=== PATIENT | female | born 1960 | race Caucasian/White ===

== ENCOUNTER 2017-12-30 12:33 | Inpatient (IN) | payer OTHER ==
[~2017-12-30] VITALS: Ht 162.6 cm; Wt 78.9 kg
[2017-12-30] VITALS (16 sets, daily range): BP systolic 129–192; BP diastolic 62–101
--- NOTE | ~2017-12-30 | 2DMMODE ---
[facility] [address] [place] [address] 2 D/M-MODE ECHOCARDIOGRAM Name: OLEKSANDR LANDRY Room #: 246-P ADM IN .R.#: [id number] Admission: 12/30/17 Attend Phys: Juan Carlos Figueroa MD Discharge: Date of : 60 Date of Service: 12/31/17 1457 Report #: [id number] THIS REPORT FOR: //name// APPROVED REPORT Study performed: 12/31/2017 13:18:13 EXAM: Comprehensive 2D, Doppler, and color-flow Echocardiogram Patient Location: ICU Room #: 246 Status: routine BSA: 1.85 HR: 75 bpm BP: 126/74 mmHg Other Information Study Quality: Adequate Indications Stroke Echo Enhancing Agent Indication: Rule out Shunt Agent(s) / Amount(s) Used: Agitated Saline 6 cc 2D Dimensions RVDd: 31.84 mm LVEF(%): 73.64 (>50%) IVSd: 8.58 (7-11mm) LVOT Diam: 21.51 (18-24mm) LVDd: 39.34 mm PWd: 10.34 (7-11mm) Ascending Ao: 27.75 (22-36mm) LVDs: 22.81 (25-40mm) Aortic Root: 33.35 mm IVC: 12.00 mm Nieto's LVEF: 73.64 % Volumes Left Atrial Volume (Systole) Single Plane 4CH: 37.44 mL Single Plane 2CH: 41.50 mL LA ESV Index: 25.00 mL/m2 Aortic Valve AoV Peak Low.: 1.19 m/s AO Peak Gr.: 5.68 mmHg LVOT Max P.77 mmHg LVOT Max V: 0.97 m/s CAPRI Vmax: 2.[address] [facility] [place] [address] 2 D/M-MODE ECHOCARDIOGRAM Name: OLEKSANDR LANDRY Room #: [facility] IN M.R.#: [id number] Admission: 12/30/17 Attend Phys: Juan Carlos Figueroa MD Discharge: Date of : 60 Date of Service: 12/31/17 1457 Report #: [id number] Mitral Valve E/A Ratio: 1.4 MV Decel. Time: 198.65 ms MV E Max Low.: 0.78 m/s MV A Low.: 0.57 m/s MV PHT: 57.61 ms IVRT: 103.81 ms Pulmonary Valve PV Peak Low.: 0.90 m/s PV Peak Gr.: 3.22 mmHg Pulmonary Vein P Vein S: 0.54 m/s P Vein A: 0.22 m/s P Vein D: 0.36 m/s P Vein A Dur.: 83.0 msec P Vein S/D Ratio: 1.50 Tricuspid Valve TR Peak Low.: 2.57 m/s RAP Estimate: 5.00 mmHg TR Peak Gr.: 26.33 mmHg PA Pressure: 31.00 mmHg Left Ventricle The left ventricle is normal size. There is normal left ventricular wall thickness. The left ventricular systolic function is normal. The left ventricular ejection fraction is within the normal range. LVEF is 55-60%. Moderate diastolic dysfunction is present (pseudonormal filling). Right Ventricle The right ventricle is normal size. The right ventricular systolic function is normal. Atria The left atrium size is normal. No shunting by contrast bubble injection. The right atrium size is normal. Aortic Valve The aortic valve is normal in structure. No aortic regurgitation is present. There is no aortic valvular stenosis. Mitral Valve The mitral valve is normal in structure. Trace mitral regurgitation. No evidence of mitral valve stenosis. Tricuspid Valve The tricuspid valve is normal in structure. Trace tricuspid [facility] [address] [place] [address] 2 D/M-MODE ECHOCARDIOGRAM Name: OLEKSANDR LANDRY Room #: 246-P [facility] IN [facility]#: [id number] Admission: 12/30/17 Attend Phys: Juan Carlos Figueroa MD Discharge: Date of : 60 Date of Service: 12/31/17 1457 Report #: [id number] regurgitation. PAP is estimated at 31 mmHg. Pulmonic Valve Pulmonic valve is not well visualized. Great Vessels The aortic root is normal in size. IVC is normal in size and collapses >50% with inspiration. Pericardium There is no pericardial effusion. <Conclusion> The left ventricle is normal size. There is normal left ventricular wall thickness. The left ventricular systolic function is normal. Moderate diastolic dysfunction is present (pseudonormal filling). The right ventricle is normal size. The left atrium size is normal. There is no aortic valvular stenosis. Trace mitral regurgitation. Trace tricuspid regurgitation. PAP is estimated at 31 mmHg. <ELECTRONICALLY SIGNED> By: Alf Pisano MD 12/31/17 1457 1457 145 Alf Pisano MD /INF
--- NOTE | ~2017-12-30 | HC ---
[facility] [place] [address] CONSULTATION Name: OLEKSANDR LANDRY Room #: 426-P [facility] IN M.R.#: [id number] Admission: 12/30/17 Attend Phys: Juan Carlos Figueroa MD Discharge: Date of : 60 Report #: [id number] THIS REPORT FOR: //name// CC: Juan Carlos Gross DATE OF SERVICE: 01/01/2018 HISTORY OF PRESENT ILLNESS: The patient is a 57-year-old white female admitted with left-sided weakness. CT of the head was negative. She was diagnosed with a right parietal stroke, given tPA with subsequent right parietal hemorrhage. This was noted to be a small bleed. She did have a seizure post-stroke. She has been closely monitored in the ICU and appears to be doing very well. We are seeing her in Rehabilitation Medicine consultation. She still supposed to be transferred out of the ICU later on today. She denies any focal weakness of upper or lower extremity or any focal visual problems. No swallowing issues. PAST MEDICAL HISTORY: Celiac disease, asthma, hyperlipidemia. MEDICATIONS: Please see the full medication listing. This includes vitamins, herbals, and supplements. ALLERGIES: WHEAT AND MILK CONTAINING PRODUCTS. SOCIAL HISTORY: Lives in a split-level house. There is an involved male significant other. 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 No steps into the house. There is a half a flight of steps inside the house. REVIEW OF SYSTEMS: Did not offer any current complaints of chest pain, shortness of breath or abdominal discomfort. PHYSICAL EXAMINATION: GENERAL: A 57-year-old white female, in no obvious distress. She is alert, pleasant, oriented. VITAL SIGNS: Last recorded temperature 98.3, pulse 81, respirations 16, blood pressure 125/72. HEENT: Appeared to be benign. NEUROLOGIC: EOMs appeared full. Functional range of motion of both upper extremities and lower extremities without obvious focal weakness. Tone appeared to be intact. She has been up ambulating with physical therapy, standby assistance. Ambulating 300 feet without a gait aid. ASSESSMENT: A 57-year-old white female with the following problem list: 1. Right parietal stroke with initial left-sided weakness, status post tPA with small right parietal hemorrhage. 2. Seizure post-stroke, on Keppra. [address] [address] CONSULTATION Name: OLEKSANDR LANDRY Room #: 426-P [facility] IN M.R.#: [id number] Admission: 12/30/17 Attend Phys: Juan Carlos Figueroa MD Discharge: Date of : 60 Report #: [id number] 3. Leukocytosis, reactive, improved. PLAN: She is doing very well. I did not detect any obvious focal weakness and tone appeared to be intact. She is doing well with functional mobility. Physical therapy will be working with her on stairs. I would anticipate she should be able to return directly home and may need some further therapies as an outpatient. I do not see that she would meet criteria or need an acute in-hospital inpatient rehabilitation stay. Thank you for asking us to assist in this patient's care. By: 1408 [id number] Yusuf Fiore MD /PMT
--- NOTE | ~2017-12-30 | HC ---
[facility] [place] [address] CONSULTATION Name: OLEKSANDR LANDRY Room #: 426-P [facility] IN M.R.#: [id number] Admission: 12/30/17 Attend Phys: Juan Carlos Figueroa MD Discharge: 01/02/18 Date of : 60 Report #: [id number] THIS REPORT FOR: //name// CC: Juan Carlos Gross DATE OF SERVICE: 12/31/2017 REASON FOR CONSULTATION: Intracerebral hemorrhage. HISTORY OF PRESENT ILLNESS: On 12/30/2017, the patient reports that she was at the [facility] with her significant other and planning to leave. She said that while she was doing nothing strenuous and while walking, developed a sense of numbness over her entire left body, face, arm, left trunk and leg. She said at that point, she did not notice any weakness. She said that she and her boyfriend returned back to [place], but then she had another episode in which she developed weakness along with the numbness. She was brought to the Emergency Room for further evaluation. While there, there is a history of seizure activity associated with this. She was studied. She was felt to be developing a stroke and was started on TPA. She subsequently had further seizure and on a CT scan of the head, there was a focal left posterior parietal hemorrhage. Keppra was given. She has been observed in the intensive care unit. Tonight, she reports no difficulty. She says the numbness, feelings of weakness in her left side have resolved. She does not notice any headache pain. No visual problems. No neck stiffness. She feels as though mentation is clear. PAST MEDICAL HISTORY: Includes a history of celiac disease. She reports that she has had problems with hypertension. There is no history of migraine. She did report problems with depression in the past. PERSONAL HISTORY: She reports that she does not smoke and drinks alcohol rarely. She works for [employer]. REVIEW OF SYSTEMS: Twelve points was performed and other than outlined above is negative. PHYSICAL EXAMINATION: GENERAL: She is pleasant, alert and cooperative, oriented x 3 with normal recent and remote memory, normal speech. I felt she was an excellent historian. NEUROLOGIC: Her pupils were equal and reactive with normal extraocular motor function. Facial motor, facial sensory examination was normal. Her lower cranial nerves were intact. On motor testing, her strength was 5/5 in upper and lower extremities bilaterally. On sensory examination, she was intact to light touch in the upper and lower extremities bilaterally. Reflexes were 1+ and symmetric. There were no pathologic reflexes. [address] [address] CONSULTATION Name: OLEKSANDR LANDRY Room #: 426-P DIS IN M.R.#: [id number] Admission: 12/30/17 Attend Phys: Juan Carlos Figueroa MD Discharge: 01/02/18 Date of : 60 Report #: [id number] HEENT: Normocephalic and atraumatic. NECK: Supple. No rigidity. EXTREMITIES: She moved upper and lower extremities with full range of motion equally. I reviewed CT scan of the head and on that study, there is a small focal hemorrhage in the right posterior parietal region without significant surrounding edema. On a followup CT scan, there was no significant change. IMPRESSION: Intracerebral hemorrhage. At this point, I feel she is stable. From my standpoint, there has been no evidence of any further hemorrhaging. I would recommend obtaining a followup CT scan in 7-10 days to follow this abnormal area until it resolves completely. I did discuss this with the patient, and I also explained to her that she will need to limit her activities and not to drive, etc. until this problem has resolved. Her workup for the underlying etiology is underway. I appreciate you asking us to see her. <ELECTRONICALLY SIGNED> By: Aidan Trujillo MD 01/04/18 1113 0937 0047 Aidan Trujillo MD /nt
--- NOTE | ~2017-12-30 | EEG ---
[facility] [place] [address] ELECTROENCEPHALOGRAM Name: OLEKSANDR LANDRY Room #: 246-P [facility] IN M.R.#: [id number] Admission: 12/30/17 Attend Phys: Juan Carlos Figueroa MD Discharge: Date of : 60 Report #: [id number] THIS REPORT FOR: //name// CC: Juan Carlos Gross DATE OF SERVICE: 12/30/2017 INDICATION FOR STUDY: This patient is being evaluated for seizure. DESCRIPTION OF PROCEDURE: EEG was done by placing the electrode by standard 10-20 system of electrode placement. Both referential and sequential montages were used for recording. Background activity in this patient's EEG is about 9-10 Hz and 40 microvolt. EEG activity is symmetrical. Photic stimulation was unremarkable. The patient went to sleep and that is associated with bilaterally symmetrical sleep spindle and vertex sharp waves. Throughout the record, no active epileptiform activity was noticed. IMPRESSION: This patient's electroencephalogram is unremarkable. No active epileptiform activity was noticed during this record. Thank you very much for this referral. By: [id number] Jignesh Wilson MD /nt
--- NOTE | ~2017-12-30 | EKG ---
[address] [address] ELECTROCARDIOGRAM REPORT Name: OLEKSANDR LANDRY Room #: 246-P ADM IN M.R.#: [id number] Admission: 12/30/17 Attend Phys: Juan Carlos Figueroa MD Discharge: Date of : 60 Report #: [id number] THIS REPORT FOR: //name// [facility] Test Date: 2017-12-30 Test Time: 16:02:00 Pat Name: OLEKSANDR LANDRY Department: Room: 246 P Gender: F Casino Host: ANGELLA : 1960 Requested By: Juan Carlos Figueroa Order Number: [id number] MD: Riky Talavera Measurements Intervals [place] Rate: 102 P: 71 MD: 158 QRS: -23 QRSD: 99 T: 34 QT: 353 QTc: 460 Interpretive Statements Sinus tachycardia Borderline left axis deviation Abnormal R-wave progression, late transition Abnormal inferior Q waves Baseline wander in lead(s) I,III,aVL,aVF,V6 No previous ECG available for comparison Electronically Signed On 12-31-2017 8:30:51 CDT by Riky Talavera [email or web address] <ELECTRONICALLY SIGNED> By: Riky Talavera MD, FACC 12/31/17 0830 1602 1602 Riky Talavera MD, [facility] /EPI
--- NOTE | ~2017-12-30 | HC ---
[facility] [place] [address] CONSULTATION Name: OLEKSANDR LANDRY Room #: 246-P [facility] IN M.R.#: [id number] Admission: 12/30/17 Attend Phys: Juan Carlos Figueroa MD Discharge: Date of : 60 Report #: [id number] THIS REPORT FOR: //name// CC: Juan Carlos Gross DATE OF SERVICE: 12/30/2017 HISTORY OF PRESENT ILLNESS: This is a 57-year-old female patient who was evaluated by me for a stroke protocol. I initially got a call from Denise Rojo from Emergency Room. She was the one who was seeing the patient in the Emergency Room and as I understood from her, she had an episode, which was described by boyfriend to her. Her symptoms were that she had numbness on the left side of the body and that was followed by weakness on the left side of the body. There was no associated other symptoms and the symptom resolved after 15 minutes. Then, she had another episode, which was more severe than the first one. The patient initially had numbness on the left side and that was followed by profound weakness on the left side and then, there was a question that she may have had some speech difficulty at that time, but it was mostly altered mental status. There was a question of seizure following that, but that is not certain. She has no history of stroke or seizures in the past. I discussed the patient with them on the phone and this patient apparently was still weak on the left side and she was still having sensory symptom of the left side and they have done a CT scan of the head and CT scan of the head has not shown any bleed. They have looked at the exclusion criteria for TPA and they have not found any exclusion criteria and their plan was to give TPA. With this new onset of weakness and numbness on the left side that looked reasonable plan till the family understood the indication, potential complication and alternative to the TPA at that time. They indicated they had explained it to them and they were planning to TPA. I came to the Emergency Room to see the patient and talked to the family. The patient was receiving TPA at that time. The history I took from the son as well as the patient's boyfriend. A boyfriend provided history that this patient had a profound episode of left-sided numbness and weakness without any seizure activities, which lasted about 15 minutes. Then, she had another very profound episode of pronounce paralysis and weakness on the left side with a question of seizure at that time. She has no prior history of stroke or seizures. REVIEW OF SYSTEMS: Carried out. She indicated she had celiac disease. I talked about any smoking, drinking alcohol and using any drugs. The family denied that she has any of those. [facility] [address] [place] [address] CONSULTATION Name: OLEKSANDR LANDRY Room #: 246-P [facility] IN M.R.#: [id number] Admission: 12/30/17 Attend Phys: Juan Carlos Figueroa MD Discharge: Date of : 60 Report #: [id number] However, I talked to the boyfriend, again just a few minutes back. Now, he mentioned that on Thursday, she took at least 3 alcoholic drinks, which is unusual for her. He still states that she otherwise drinks alcohol very rarely. This information we did not have and this is new. When I talked to the son a few minutes ago and he indicated that this patient may have had more than 2 and maybe up to 4 TIA-like symptoms, but all the episodes occurred today. I carried out the 14-point review of systems as much as I could, but that time was shot in the Emergency Room and lot of history is different than what I got earlier as summarized above. PAST MEDICAL HISTORY: Negative for any seizures or migraine headache. The family is certain that she does not suffer from chronic migraine. I did talk to her any history of depression and she indicated that she does not have any depression now but she used to some time ago when she was . FAMILY HISTORY: Her mother had developed seizures after she fell from a horse and had head injury. SOCIAL HISTORY: The initial social history was that she does not smoke, drink alcohol except one drink occasionally and does not use drugs. Subsequently, I did get the history that on vacation, she did drink alcohol but still it was only 3 alcoholic drinks according to the boyfriend. PHYSICAL EXAMINATION: Examination was carried out multiple times. Last examination indicated that she is alert and she is responsive. She has a speech. She is still somewhat confused. Cranial nerve examination 2 through 12 is difficult, but I do not see any pronounced abnormality. She moves both sides. This examination is similar to the one where I had carried out in the Emergency Room. Her blood pressure was pretty high when she came in and the blood pressure was 192/101 and it was thought it was reactive hypertension. That blood pressure was lowered by Emergency Room physician and the last blood pressure she had was 149/77. It looks like that when she came in, her white count was normal at 10.8, but subsequently it looks like her white count has gone up, but she also had a seizure. RADIOLOGICAL DATA: I reviewed the CT angiogram with the radiologist and reviewed the CT scan films on this patient. IMPRESSION AND RECOMMENDATIONS: There is some confusion about the medication, but I think she got 1000 mg of Keppra in the Emergency Room but since she still had a seizure, we might give her some more Keppra. This patient was seen multiple times. The plan was to get a CT angiogram and perfusion in this patient but looks like when she went to Intensive Care Unit, the nurses called me that she had another seizure. Seizure has a distinct focality towards the left side. The episode she had previously were also on the [facility] [address] [place] [address] CONSULTATION Name: OLEKSANDR LANDRY Room #: 246-P ADM IN M.R.#: [id number] Admission: 12/30/17 Attend Phys: Juan Carlos Figueroa MD Discharge: Date of : 60 Report #: [id number] left side. Because of that, a stat CT scan of the head was done, which demonstrated a small bleed in the right parietal area. CT angiogram was done and that was reviewed with the radiologist and he states there is no evidence of aneurysms or any blockage or any intracranial sinus thrombosis. I talked to hospitalist, Dr. Figueroa and the nurse practitioner and told them to consult Hematology to see what can be done to reverse the tissue plasminogen activator. I myself call the neurosurgeon and asked them to review the films and they agree with conservative treatment at the moment and asked for another CAT scan or an MRI tomorrow. I was going to do an MRI tonight, but I did not do it because it is unlikely to change anything and if the patient has a seizure in the MRI that will be catastrophic. I will continue Keppra in this patient. It is a pretty small bleed, but we need to make sure it does not become better. I have discussed with the family very clearly all the things from the beginning. During my initial visit with them in the Emergency Room, I have discussed with them that the treatment of the stroke is done with a presumptive diagnosis at that time because there is no time to confirm the diagnosis, especially in her case where she was close to passing the window. I had very clearly talked to them their options, indications, potential complications, including bleed from tissue plasminogen activator and alternative in that regard and as mentioned above that we gave tissue plasminogen activator on the suspicion of stroke because we do not have time to confirm that or it delays the treatment. The downside to that is that sometime we land of giving tissue plasminogen activator to the non-stroke patient. They understood that very well. They wanted to proceed with tissue plasminogen activator and we did and presently, she did have a small bleed but the bleed is small and if it does not become bigger, it should get absorbed. She needs to be on anticonvulsant and we would like to do an MRI to see if it is a hemorrhagic stroke or if there is a bleed, although that may be difficult to confirm. More than 70 minutes of time was spent taking care of this patient today and majority of that time was spent counseling the family on multiple occasions and coordinating her care by talking to multiple other health care transport nurse. <ELECTRONICALLY SIGNED> By: Jignesh Wilson MD 01/01/18 2259 [id number] Jignesh Wilson MD /nt
--- NOTE | ~2017-12-30 | HC ---
[facility] [address] [address] CONSULTATION Name: OLEKSANDR LANDRY Room #: 246-P ADM IN M.R.#: [id number] Admission: 12/30/17 Attend Phys: Juan Carlos Figueroa MD Discharge: Date of : 60 Report #: [id number] THIS REPORT FOR: //name// CC: Juan Carlos Gross DATE OF SERVICE: 12/30/2017 REASON FOR CONSULT: Intracranial hemorrhage after TPA for possible stroke. HISTORY OF PRESENT ILLNESS: Partly from the chart, partly from translating the patient, partly from her family. The patient is a 57-year-old female from the [facility] who lives in [place] who had been down to the big [place] and apparently had some seizure-like activity while being driven to the emergency room. She began having troubles this morning, onset on 12/30 while at the [employer]. They were cleaning the boat. She felt left-sided weakness and numbness and tingling from her cheek to her toe. She was having difficulty speaking and breathing. They began coming towards town. This subsided and it came and went. Upon arrival here at their house, she had more trouble with similar episode like one before that lasted about [address] to the emergency room, she began having what sounds like seizure activity. They called EMS. Her first CT here did not show any specific abnormalities. I believe she got the TPA about 1400 if I recall correctly. She had both, the bolus and begin infusion. She did begin having some difficulties and her second head CT head reviewed and was found to have a parietal abnormality. Specifically, there been development of a small focal high-attenuation hemorrhage in the right parietal lobe measuring approximately 1.8 cm. They also mentioned there may be a tiny amount of subarachnoid blood within the right posterior frontal lobe sulcus. No other lesions are seen. The patient also had a head and neck that showed the carotid arteries were widely patent bilaterally. Intradural vertebral arteries are patent bilaterally and basilar arteries present normal. The impression was that no specific vascular abnormalities identified in the neck or head. The patient at this time is in the ICU. She has a slight headache that she describes a tension ache, may be a little bit worse than usual, but she does have headaches. No vision troubles, does report a history of cataracts and has been seeing better since they were removed. She does feel like her thinking is a little bit slow, but she says it may be from being in the ICU and being stressed out. She says she thinks she is thinking clearly. The prep is a little bit slow. She does describe some a tingling feeling that comes and goes. She is moving her arms and legs. Denies any stomach trouble, any blood in her urine or stool, any fevers or chills, any unusual chemical exposure or sick animal exposure or drinking well water. She has no unusual trauma. No diarrhea, no constipation. [facility] [address] [place] [address] CONSULTATION Name: OLEKSANDR LANDRY Room #: 246-P [facility] IN M.R.#: [id number] Admission: 12/30/17 Attend Phys: Juan Carlos Figueroa MD Discharge: Date of : 60 Report #: [id number] PAST MEDICAL HISTORY: Notable for history of celiac disease, also hysterectomy with use of estrogen prior to admission, avoid in future. FAMILY HISTORY: Sounds like no clots or bleeding or cancer difficulties. Sounds like she has two sisters and I think one son. There is a dog at home. She works for [employer], nonsmoker, alcohol occasionally. CURRENT MEDICATIONS: Include famotidine 20 b.i.d. IV labetalol 10 mg q. 4h IV p.r.n., Tylenol p.r.n. Lorazepam had been given. Electrolyte replacements. I believe she received IV thiamin, also received IV levetiracetam. LABORATORY DATA: Lab here shows BUN of 16, creatinine of 1.1. Transaminases normal. Coags on baseline where an INR of 1, protime of 10.3, APTT 23.6, fibrinogen at 1525 was 220. This was after the TPA, but before any blood products or cryo FFP was given. The patient had a drug screen that was normal. White blood count on admission was 10.8, most recently 15.6, hemoglobin on admission was 13, currently 11.5, MCV 85.9, platelets 348 on admission, 313 most recently. Differential has slight increase seg, neutrophils. TSH 3.299. UA has trace blood. Blood gas had a pH of 7.133, CO2 of 41, O2 of 37.3 on oxygen. Lactate was 11.14 this afternoon, but hemoglobin was normal range. PHYSICAL EXAMINATION: GENERAL: The patient appears her stated age. VITAL SIGNS: Height is 5 feet 4 inches, which is 162.6 cm, weight 175 pounds or 79.4 kilograms. Blood pressure is 149/77, O2 sat 98%, pulse 91, temperature 98.5. MOOD: She is alert and pleasant and conversant. NEUROLOGIC: Face is symmetrical. She is moving extremities, though she does describe the slightly unusual sensation on her arms like a tingling feeling. HEENT: Oropharynx without injection, leukoplakia or petechiae. LUNGS: Clear with symmetric expansion, unlabored without rhonchi, rales or wheezes. HEART: Appears regular rate. ABDOMEN: Soft, no masses, nontender. EXTREMITIES: Without clubbing, cyanosis or edema. DISCUSSION: Discussed with the patient that I have seen her to try to help thicken her blood after the TPA. We discussed that we have and will be giving her some cryo to help make sure her fibrinogen helps stay up. To help the platelets work better, we will also give her platelet transfusions, but the platelets may be dysfunctional after the TPA. We expect that the TPA can be metabolized quickly as it does have short half like. We will be watching her blood closely every 4 hours for the next about 36 hours. ASSESSMENT AND PLAN: [facility] [address] [place] [address] CONSULTATION Name: OLEKSANDR LANDRY Room #: 246-P ADM IN M.R.#: [id number] Admission: 12/30/17 Attend Phys: Juan Carlos Figueroa MD Discharge: Date of : 60 Report #: [id number] 1. Intracranial hemorrhage after tissue plasminogen activator for possible stroke. The patient appears to be stable. The patient has received pooled cryo, will be receiving platelets. Her fibrinogen after tissue plasminogen activator, before any blood products was 220. We will follow this and try to keep it above 150. We also follow her coags. If they drop, may need to give other blood products. No active bleeding at this point. 2. History of stroke. We will defer to Neurology. We would probably suggest avoiding hormone products in the future, as this possibly might have contributed to her initial cerebrovascular accident symptoms. 3. Seizure activity. Continue anticonvulsants. 4. Lipids. Defer to others. 5. History of celiac disease. Avoid gluten. Defer to her diet. 6. Menopausal. As above, avoid future hormone usage. We will follow with you. <ELECTRONICALLY SIGNED> By: Clay Ambrose MD 12/31/17 0837 [id number] Clay Ambrose MD /nt
[2017-12-30] MEDS ORDERED: ESTRACE0.5 MG PO (13:09)
[2017-12-30] MEDS ORDERED: SINGULAIR 10 MG10 M1 PO (13:09)
[2017-12-30] MEDS ORDERED: SYMBICORT80 MCG/4.1 INH (13:09)
[2017-12-30 13:14] LABS: ABSOLUTE NEUTROPHILS 7.9 thou/uL (1.4-8.2); BASOPHILS 0.3 % (0.0-2.0); EOSINOPHILS 2.4 % (0.0-3.0); HEMATOCRIT 39.2 % (37.0-47.0); LYMPHOCYTES 19.8 % (24.0-44.0); MCH 28.5 pg (26.0-34.0); MCHC 33.2 g/dL (28.0-37.0); MCV 85.9 fL (80.0-100.0); MONOCYTES 4.3 % (1.0-8.0); PLATELET COUNT 348 thou/uL (150-400); POLYS 73.2 % (36.0-66.0); RBC 4.57 mil/uL (4.20-5.00); RDW 14.1 % (10.5-14.5); WBC 10.8 thou/uL (4.0-11.0)
[2017-12-30 13:29] LABS: ANION GAP 9 mmol/L (7-16); BUN 16 mg/dL (7-18); CALCIUM 8.9 mg/dL (8.5-10.1); CHLORIDE 104 mmol/L (98-107); CO2 24 mmol/L (21-32); GLUCOSE 110 mg/dL (74-106); SODIUM 137 mmol/L (136-145)
[2017-12-30 13:38] LABS: ALBUMIN 3.5 g/dL (3.4-5.0); SGOT 14 U/L (15-37); SGPT 22 U/L (30-65); TOTAL BILIRUBIN 0.2 mg/dL (<0.1-1.0); TOTAL PROTEIN 7.7 g/dL (6.4-8.2); TROPONIN-I <0.06 ng/mL (<0.06)
[2017-12-30 14:38] LABS: BE(vivo) -15.1 mmol/L (-2 to +3); HCO3 13.5 mmol/L (22.0-26.0); PCO2 41.1 mmHg (35.0-45.0); PO2 372.6 mmHg (80.0-100.0); pH 7.133 (7.360-7.450); sO2 99.7 % (92.0-98.0)
[2017-12-30 14:46] LABS: HEMATOCRIT 40.6 % (37.0-47.0); MCH 28.3 pg (26.0-34.0); MCHC 32.1 g/dL (28.0-37.0); MCV 88.4 fL (80.0-100.0); RBC 4.6 mil/uL (4.20-5.00); RDW 14.4 % (10.5-14.5); WBC 21.5 thou/uL (4.0-11.0)
[2017-12-30 14:58] LABS: ANION GAP 20 mmol/L (7-16); BUN 16 mg/dL (7-18); CALCIUM 8.8 mg/dL (8.5-10.1); CHLORIDE 105 mmol/L (98-107); CO2 15 mmol/L (21-32); CREATININE 1.1 mg/dL (0.6-1.0); GLUCOSE 143 mg/dL (74-106); POTASSIUM 3.8 mmol/L (3.5-5.1); SODIUM 140 mmol/L (136-145)
[2017-12-30 15:03] LABS: ALBUMIN 3.6 g/dL (3.4-5.0); LIPASE 201 U/L (73-393); PHOSPHORUS 4.4 mg/dL (2.5-4.9); SGOT 15 U/L (15-37); SGPT 22 U/L (30-65); TOTAL BILIRUBIN 0.3 mg/dL (<0.1-1.0); TOTAL PROTEIN 7.5 g/dL (6.4-8.2); TROPONIN-I <0.06 ng/mL (<0.06)
[2017-12-30 15:50] LABS: ABSOLUTE NEUTROPHILS 14.2 thou/uL (1.4-8.2); BASOPHILS 0.1 % (0.0-2.0); EOSINOPHILS 0.3 % (0.0-3.0); HEMATOCRIT 34.2 % (37.0-47.0); HEMOGLOBIN 11.5 gm/dL (12.0-15.0); LYMPHOCYTES 6.5 % (24.0-44.0); MCH 28.8 pg (26.0-34.0); MCHC 33.6 g/dL (28.0-37.0); MCV 85.7 fL (80.0-100.0); MONOCYTES 2.4 % (1.0-8.0); PLATELET COUNT 313 thou/uL (150-400); POLYS 90.7 % (36.0-66.0); RDW 13.9 % (10.5-14.5); WBC 15.6 thou/uL (4.0-11.0)
[2017-12-30 15:59] LABS: APTT 23.6 Seconds (24.5-32.8); FIBRINOGEN 220.1 mg/dL (210-360); PROTIME 10.3 Seconds (9.3-11.4)
[2017-12-30 16:45] LABS: URINE BILIRUBIN NEGATIVE (Negative); URINE BLOOD TRACE (Negative); URINE CLARITY CLEAR; URINE COLOR YELLOW; URINE GLUCOSE-RANDOM* NEGATIVE (Negative); URINE KETONES NEGATIVE (Negative); URINE LEUKOCYTES NEGATIVE (Negative); URINE NITRITE NEGATIVE (Negative); URINE PROTEIN (DIPSTICK) TRACE (Negative); URINE UROBILINOGEN 0.2 E.U./dl (0.2-1.0)
[2017-12-30 16:57] LABS: AMP/METHAMP Negative (Negative); BARBITURATES Negative (Negative); BENZODIAZEPINES Negative (Negative); COCAINE Negative (Negative); METHADONE Negative (Negative); OPIATES Negative (Negative); PCP Negative (Negative)
[2017-12-30] MEDS ORDERED: FISH OIL 1,001000 M2 PO (17:23)
[2017-12-30] MEDS ORDERED: BIOTIN1 M1 PO (17:23)
[2017-12-30 20:53] LABS: HEMOGLOBIN 12.9 gm/dL (12.0-15.0); MCH 28.9 pg (26.0-34.0); MCV 84.7 fL (80.0-100.0); RBC 4.48 mil/uL (4.20-5.00); RDW 13.9 % (10.5-14.5); WBC 16.1 thou/uL (4.0-11.0)
[2017-12-30 21:08] LABS: APTT 24.3 Seconds (24.5-32.8); FIBRINOGEN 274.5 mg/dL (210-360); PROTIME 10.2 Seconds (9.3-11.4)
[2017-12-31] VITALS (22 sets, daily range): BP systolic 118–154; BP diastolic 65–92
[2017-12-31 01:23] LABS: HEMOGLOBIN 12.5 gm/dL (12.0-15.0); MCH 28.7 pg (26.0-34.0); MCHC 33.8 g/dL (28.0-37.0); RBC 4.35 mil/uL (4.20-5.00); RDW 14.1 % (10.5-14.5); WBC 14.5 thou/uL (4.0-11.0)
[2017-12-31 01:34] LABS: ANION GAP 11 mmol/L (7-16); BUN 8 mg/dL (7-18); CALCIUM 8.2 mg/dL (8.5-10.1); CHLORIDE 107 mmol/L (98-107); CHOLESTEROL 206 mg/dL (<200); CO2 24 mmol/L (21-32); CREATININE 0.8 mg/dL (0.6-1.0); GLUCOSE 104 mg/dL (74-106); HDL CHOLESTEROL 50 mg/dL (>40); LDL CHOLESTEROL 115 mg/dL (<100); MAGNESIUM 2.2 mg/dL (1.8-2.4); POTASSIUM 3.5 mmol/L (3.5-5.1); SGOT 18 U/L (15-37); SGPT 20 U/L (30-65); SODIUM 142 mmol/L (136-145); TC:HDL 4.1 Ratio (Not establshd); TOTAL BILIRUBIN 0.7 mg/dL (<0.1-1.0); TOTAL PROTEIN 6.8 g/dL (6.4-8.2); TRIGLYCERIDE 207 mg/dL (<150); VLDL 41 mg/dL (<40)
[2017-12-31 01:35] LABS: SERUM ASSESSMENT Clear
[2017-12-31 01:38] LABS: APTT 24.7 Seconds (24.5-32.8); FIBRINOGEN 309.9 mg/dL (210-360); PROTIME 10.2 Seconds (9.3-11.4)
[2017-12-31 05:51] LABS: HEMATOCRIT 36.7 % (37.0-47.0); HEMOGLOBIN 12.6 gm/dL (12.0-15.0); MCH 29.2 pg (26.0-34.0); MCHC 34.4 g/dL (28.0-37.0); RBC 4.32 mil/uL (4.20-5.00); RDW 13.9 % (10.5-14.5); WBC 13.3 thou/uL (4.0-11.0)
[2017-12-31 06:04] LABS: APTT 24.9 Seconds (24.5-32.8); PROTIME 10.2 Seconds (9.3-11.4)
[2017-12-31 09:01] LABS: HEMATOCRIT 36.9 % (37.0-47.0); HEMOGLOBIN 12.4 gm/dL (12.0-15.0); MCH 28.6 pg (26.0-34.0); MCHC 33.7 g/dL (28.0-37.0); RBC 4.35 mil/uL (4.20-5.00); RDW 14.1 % (10.5-14.5); WBC 12.6 thou/uL (4.0-11.0)
[2017-12-31 09:20] LABS: APTT 25.2 Seconds (24.5-32.8); FIBRINOGEN 320.2 mg/dL (210-360); PROTIME 10.3 Seconds (9.3-11.4)
[2017-12-31 13:21] LABS: HEMATOCRIT 37.1 % (37.0-47.0); HEMOGLOBIN 12.5 gm/dL (12.0-15.0); MCH 28.9 pg (26.0-34.0); MCHC 33.8 g/dL (28.0-37.0); MCV 85.4 fL (80.0-100.0); RBC 4.35 mil/uL (4.20-5.00); WBC 10.3 thou/uL (4.0-11.0)
[2017-12-31 13:29] LABS: PROTIME 10.4 Seconds (9.3-11.4)
[2017-12-31 17:21] LABS: HEMATOCRIT 38.7 % (37.0-47.0); HEMOGLOBIN 13.1 gm/dL (12.0-15.0); MCH 28.9 pg (26.0-34.0); MCHC 33.7 g/dL (28.0-37.0); MCV 85.9 fL (80.0-100.0); RBC 4.51 mil/uL (4.20-5.00); RDW 13.9 % (10.5-14.5); WBC 10.5 thou/uL (4.0-11.0)
[2017-12-31 17:34] LABS: APTT 25.2 Seconds (24.5-32.8); FIBRINOGEN 368.6 mg/dL (210-360); PROTIME 10.2 Seconds (9.3-11.4)
[2017-12-31 21:16] LABS: HEMATOCRIT 38.9 % (37.0-47.0); HEMOGLOBIN 12.9 gm/dL (12.0-15.0); MCH 28.6 pg (26.0-34.0); MCHC 33.2 g/dL (28.0-37.0); MCV 86.3 fL (80.0-100.0); RBC 4.51 mil/uL (4.20-5.00); WBC 11.9 thou/uL (4.0-11.0)
[2017-12-31 21:29] LABS: APTT 25.4 Seconds (24.5-32.8); FIBRINOGEN 355.2 mg/dL (210-360); PROTIME 10.2 Seconds (9.3-11.4)
[2018-01-01] VITALS (22 sets, daily range): BP systolic 104–143; BP diastolic 59–89
[2018-01-01 01:20] LABS: HEMATOCRIT 37.1 % (37.0-47.0); HEMOGLOBIN 12.5 gm/dL (12.0-15.0); MCHC 33.8 g/dL (28.0-37.0); MCV 85.7 fL (80.0-100.0); RBC 4.32 mil/uL (4.20-5.00); RDW 14.1 % (10.5-14.5); WBC 10.9 thou/uL (4.0-11.0)
[2018-01-01 01:32] LABS: CALCIUM 8.3 mg/dL (8.5-10.1); CREATININE 0.7 mg/dL (0.6-1.0); POTASSIUM 3.7 mmol/L (3.5-5.1)
[2018-01-01 01:34] LABS: APTT 25.7 Seconds (24.5-32.8); FIBRINOGEN 382.9 mg/dL (210-360); PROTIME 10.3 Seconds (9.3-11.4)
[2018-01-01 05:09] LABS: GLYCOHEMOGLOBIN (HGB A1C) 5.8 % (4.8-5.6)
[2018-01-01 06:20] LABS: ABSOLUTE NEUTROPHILS 7.7 thou/uL (1.4-8.2); BASOPHILS 0.2 % (0.0-2.0); EOSINOPHILS 3.7 % (0.0-3.0); HEMATOCRIT 37.6 % (37.0-47.0); HEMOGLOBIN 12.8 gm/dL (12.0-15.0); LYMPHOCYTES 18.6 % (24.0-44.0); MCH 29.2 pg (26.0-34.0); PLATELET COUNT 329 thou/uL (150-400); POLYS 71.5 % (36.0-66.0); RBC 4.38 mil/uL (4.20-5.00); RDW 14.3 % (10.5-14.5); WBC 10.8 thou/uL (4.0-11.0)
[2018-01-01 06:32] LABS: APTT 25.5 Seconds (24.5-32.8); FIBRINOGEN 361.8 mg/dL (210-360); PROTIME 10.2 Seconds (9.3-11.4)
[2018-01-01 09:21] LABS: HEMATOCRIT 39.3 % (37.0-47.0); HEMOGLOBIN 13.3 gm/dL (12.0-15.0); MCH 29.2 pg (26.0-34.0); MCV 85.9 fL (80.0-100.0); RBC 4.57 mil/uL (4.20-5.00); WBC 11.7 thou/uL (4.0-11.0)
[2018-01-01 09:35] LABS: APTT 25.4 Seconds (24.5-32.8); FIBRINOGEN 423.9 mg/dL (210-360)
[2018-01-02 00:03] VITALS: BP 169/92
[2018-01-02 03:54] VITALS: BP 133/96
[2018-01-02] MEDS ORDERED: KEPPRA 500 MG500 M2 PO (10:42)
[2018-01-02] MEDS ORDERED: LIPITOR10 MG PO (10:44)
[2018-01-02 11:06] VITALS: BP 133/96
[2018-01-02 11:09] VITALS: BP 133/78
[2018-01-02 11:38] VITALS: BP 133/96
== END 2018-01-02 11:30 | disposition home or self-care (01) | DRG 65 ==
LOC: ER 12:33 → EROBS 13:36 → ICU 13:36 → 4E 01-01 23:50
PROVIDERS: Hospitalist; Internal Medicine Hematology & Oncology; Nurse Practitioner; Physician Assistant
PROC: 30233N1 Transfusion of Nonautologous Red Blood Cells into Peripheral Vein, Percutaneous Approach (ICD-10-PCS; principal; 2017-12-30)
PROC: 30233M1 Transfusion of Nonautologous Plasma Cryoprecipitate into Peripheral Vein, Percutaneous Approach (ICD-10-PCS; principal; 2017-12-30)
PROC: 30233R1 Transfusion of Nonautologous Platelets into Peripheral Vein, Percutaneous Approach (ICD-10-PCS; principal; 2017-12-30)
PROC: 3E03317 Introduction of Other Thrombolytic into Peripheral Vein, Percutaneous Approach (ICD-10-PCS; principal; 2017-12-30)
DX: I62.9 Nontraumatic intracranial hemorrhage, unspecified (principal); D68.9 Coagulation defect, unspecified; E83.42 Hypomagnesemia; F32.9 Major depressive disorder, single episode, unspecified; J45.909 Unspecified asthma, uncomplicated; E78.5 Hyperlipidemia, unspecified; D72.829 Elevated white blood cell count, unspecified; K90.0 Celiac disease; Z91.011 Allergy to milk products; Z90.710 Acquired absence of both cervix and uterus; Z82.0 Family history of epilepsy and other diseases of the nervous system; Z78.0 Asymptomatic menopausal state; Z79.899 Other long term (current) drug therapy
CPT/HCPCS: 10078; 10084